=== PATIENT | male | born 1945 | race African-American/Black ===

== ENCOUNTER 2016-08-12 02:24 | Emergency (ER) | payer MEDICARE ==
[~2016-08-12] VITALS: Ht 182.9 cm; Wt 122.5 kg
[~2016-08-12 02:24] MED LIST: ASPI-39 PO; CHOL10003 PO; LOSA100T6 PO; METF500T4 PO; TERA5CAP3 PO; TRIA1TAB5 PO; VALS1TAB29 PO; VALS40TA2 PO
[2016-08-12] MEDS ORDERED: MORPHINE SULFATE 2 MG/ML DISP.SYRIN. IV/SQ PRN (03:00)
[2016-08-12 03:06] LABS: BASO # 0.1 x10^3/uL (0.0-0.2); BASO % 1 % (0-3); EOS % 0 % (0-3); HEMATOCRIT 43.2 % (39.0-53.0); HEMOGLOBIN 14.4 g/dL (13.0-17.5); LYMPH # 1.5 x10^3/uL (1.0-4.8); LYMPH % 19 % (24-48); MEAN CORPUSCULAR HEMOGLOBIN 30 pg (25-35); MEAN CORPUSCULAR HGB CONC 33 g/dL (31-37); MEAN CORPUSCULAR VOLUME 90 fL (79-100); MONO % 7 % (0-9); NEUT % 72 % (31-73); PLATELET COUNT 198 x10^3/uL (140-400); RED BLOOD COUNT 4.82 x10^6/uL (4.30-5.70); RED CELL DISTRIBUTION WIDTH 14.1 % (11.5-14.5); WHITE BLOOD COUNT 7.8 x10^3/uL (4.0-11.0)
[2016-08-12 03:15] LABS: CREATININE 1.2 mg/dL (0.7-1.3); POTASSIUM 3.8 mmol/L (3.5-5.1)
[2016-08-12 03:19] LABS: INR 1.1 (0.8-1.1); PROTHROMBIN TIME PATIENT 13.2 SEC (11.7-14.0)
[2016-08-12 03:20] LABS: ALBUMIN 3.6 g/dL (3.4-5.0); DIRECT BILIRUBIN 0.2 mg/dL (0.0-0.2); TOTAL BILIRUBIN 0.6 mg/dL (0.2-1.0); TOTAL PROTEIN 7.6 g/dL (6.4-8.2)
[2016-08-12] MEDS ORDERED: ASPIRIN CHEWABLE 81 MG TABLET. PO ONE (03:30)
[2016-08-12] MEDS ORDERED: NITROGLYCERIN OINT 1 GM PACKET. TP ONE (03:30)
[2016-08-12 03:55] LABS: CKMB MASS 0.6 ng/mL (0.0-3.6)
[2016-08-12 04:02] VITALS: BP 169/86
[2016-08-12] MEDS ORDERED: FAMO40TA57 PO (04:52)
--- NOTE | 2016-08-12 04:52 | PHYS DOC ---
Past Medical History Past Medical History: Diabetes-Type II, GERD, High Cholesterol, Hypertension Past Surgical History: Hip Replacement, Knee Replacement Additional Past Surgical Histo: back Alcohol Use: None Drug Use: None Social History Narrative: as with Adult General Chief Complaint Chief Complaint: NAUSEA/VOMITING/DIARRHA HPI HPI Patient is a 70 year old male who presents with epigastric pain. he states this started at 1800 p.m. The pain is a 5 on a pain scale. He started having some dry heaves after ingesting 7-Up with Pepto-Bismol. He states the epigastric discomfort has not resolved. He denies any actual chest pain, no shortness of air, no recent travel. No fever or chills. Review of Systems Review of Systems Constitutional: Denies fever or chills Eyes: Denies change in visual acuity, redness, or eye pain HENT: Denies nasal congestion or sore throat Respiratory: Denies cough or shortness of breath Cardiovascular: See history of present illness GI: See history of present illness. No diarrhea. No blood in his stools. : Denies dysuria or hematuria Musculoskeletal: Denies back pain or joint pain Integument: Denies rash or skin lesions Neurologic: Denies headache, focal weakness or sensory changes Current Medications Current Medications Current Medications Medications (Trade) Dose Ordered Sig/Karlene Start Time Stop Time Status Last Admin Dose Admin Aspirin (Children'S Aspirin) 324 mg 1X ONCE 08/12/16 03:30 08/12/16 03:31 DC 08/12/16 04:04 324 MG Famotidine (Pepcid) 20 mg 1X ONCE 08/12/16 05:00 08/12/16 05:01 DC 08/12/16 04:46 20 MG Morphine Sulfate 2 mg PRN Q15MIN PRN 08/12/16 03:00 08/12/16 05:19 DC 08/12/16 04:03 2 MG Nitroglycerin (Nitro-Bid Oint) 1 inch 1X ONCE 08/12/16 03:30 08/12/16 03:31 DC 08/12/16 04:02 1 INCH Allergies Allergies Allergies Coded Allergies Type Severity Reaction Last Updated Verified No Known Drug Allergies 06/15/13 No Physical Exam Physical Exam Constitutional: Well developed, well nourished, no acute distress, non-toxic appearance. HENT: Normocephalic, atraumatic, bilateral external ears normal, oropharynx moist, no oral exudates, nose normal. Eyes: PERRLA, EOMI, conjunctiva normal, no discharge. Neck: Normal range of motion, no tenderness, supple, no stridor. Cardiovascular:Heart rate regular rhythm, no murmur Lungs & Thorax: Bilateral breath sounds clear to auscultation Abdomen: Bowel sounds normal, soft, no tenderness, no masses, no pulsatile masses. No pain on palpation of his abdomen. Skin: Warm, dry, no erythema, no rash. Back: No tenderness, no CVA tenderness. Extremities: No tenderness, no cyanosis, no clubbing, ROM intact, no edema. Neurologic: Alert and oriented X 3, normal motor function, normal sensory function, no focal deficits noted. Psychologic: Affect normal, judgement normal, mood normal. Current Patient Data Vital Signs Vital Signs Date Time Temp Pulse Resp B/P (MAP) Pulse Ox O2 Delivery O2 Flow Rate FiO2 08/12/16 04:03 20 96 08/12/16 04:02 59 169/86 08/12/16 03:07 98.6 Room Air 98.6 Lab Values Laboratory Tests Test 08/12/16 02:55 White Blood Count 7.8 x10^3/uL (4.0-11.0) Red Blood Count 4.82 x10^6/uL (4.30-5.70) Hemoglobin 14.4 g/dL (13.0-17.5) Hematocrit 43.2 % (39.0-53.0) Mean Corpuscular Volume 90 fL (79-100) Mean Corpuscular Hemoglobin 30 pg (25-35) Mean Corpuscular Hemoglobin Concent 33 g/dL (31-37) Red Cell Distribution Width 14.1 % (11.5-14.5) Platelet Count 198 x10^3/uL (140-400) Neutrophils (%) (Auto) 72 % (31-73) Lymphocytes (%) (Auto) 19 % (24-48) L Monocytes (%) (Auto) 7 % (0-9) Eosinophils (%) (Auto) 0 % (0-3) Basophils (%) (Auto) 1 % (0-3) Neutrophils # (Auto) 5.6 x10^3uL (1.8-7.7) Lymphocytes # (Auto) 1.5 x10^3/uL (1.0-4.8) Monocytes # (Auto) 0.6 x10^3/uL (0.0-1.1) Eosinophils # (Auto) 0.0 x10^3/uL (0.0-0.7) Basophils # (Auto) 0.1 x10^3/uL (0.0-0.2) Prothrombin Time 13.2 SEC (11.7-14.0) Prothrombin Time INR 1.1 (0.8-1.1) Sodium Level 144 mmol/L (136-145) Potassium Level 3.8 mmol/L (3.5-5.1) Chloride Level 106 mmol/L (98-107) Carbon Dioxide Level 27 mmol/L (21-32) Anion Gap 11 (6-14) Blood Urea Nitrogen 21 mg/dL (8-26) Creatinine 1.2 mg/dL (0.7-1.3) Estimated GFR (Cockcroft-Gault) 72.0 Glucose Level 185 mg/dL (70-99) H Calcium Level 9.0 mg/dL (8.5-10.1) Total Bilirubin 0.6 mg/dL (0.2-1.0) Direct Bilirubin 0.2 mg/dL (0.0-0.2) Aspartate Amino Transferase (AST) 13 U/L (15-37) L Alanine Aminotransferase (ALT) 17 U/L (16-63) Alkaline Phosphatase 92 U/L (46-116) Creatine Kinase 83 U/L (39-308) Creatine Kinase MB (Mass) 0.6 ng/mL (0.0-3.6) Creatine Kinase MB Relative Index 0.7 % (0-4) Troponin I Quantitative < 0.017 ng/mL (0.000-0.055) BV-Xnk-H-Type Natriuretic Peptide 238 pg/mL (0-124) H Total Protein 7.6 g/dL (6.4-8.2) Albumin 3.6 g/dL (3.4-5.0) Laboratory Tests 08/12/16 02:55 Laboratory Tests 08/12/16 02:55 EKG EKG EKG interpreted by myself NSR, rate 73, prolonged QT; 1deg AV block Radiology/Procedures Radiology/Procedures CXR: interpreted by myself. fluid in fissure on right vs atelectasis. Course & Med Decision Making Course & Med Decision Making Pertinent Labs and Imaging studies reviewed. (See chart for details) Evaluated patient. Concerned this discomfort may be angina. NTP to chest wall; ASA dosed. 0430 AM: Spoke with patient; recommended admission to r/o cardiac etiology. HE DECLINED ADMISSION. He just wants "something for my reflux." Dosed here with pepcid. Informed patient that he will need to sign out AMA as he is high risk and I cannot r/o cardiac etiology here in ED. BP 160/80l sat 93% P 68 Dragon Disclaimer Dragon Disclaimer This electronic medical record was generated, in whole or in part, using a voice recognition dictation system. Departure Departure Impression: Primary Impression: Epigastric pain Additional Impression: Hypertension Disposition: 07 AGAINST MEDICAL ADVICE Referrals: LUCINDA MARCH MD (PCP) Scripts Famotidine (PEPCID) 40 Mg Tablet 40 MG PO HS for 30 Days, #30 TAB Prov: FANY BHAGAT MD 08/12/16 Problem Qualifiers FANY BHAGAT MD August 12, 2016 04:52
[2016-08-12] MEDS ORDERED: FAMOTIDINE 20 MG TABLET. PO ONE (05:00)
--- NOTE | 2016-08-12 07:47 | RAD ---
Indication reflux. Vomiting. A single view of the chest was obtained and is compared to an examination just over 8 years earlier. The level of inspiratory effort is not optimal. The heart and pulmonary vessels appear normal. The lungs are clear of acute infiltrates. Significant pleural fluid is not seen. There is no pneumothorax. A significant change when compared to the previous examination is not seen. IMPRESSION: No acute or focal process seen in the chest
--- NOTE | 2016-08-12 07:51 | EKG ---
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
== END 2016-08-12 05:19 | disposition left against medical advice (07) ==
LOC: ER 02:24
DX: R10.13 Epigastric pain (principal); I10 Essential (primary) hypertension; E78.00 Pure hypercholesterolemia, unspecified; E11.9 Type 2 diabetes mellitus without complications; K21.9 Gastro-esophageal reflux disease without esophagitis
CPT/HCPCS: 36415; 71010; 80048; 80076; 82553; 83880; 84484; 85027; 85610; 93005; 96374; 99285; J2270

== ENCOUNTER 2016-09-06 09:11 | Emergency (ER) | payer MEDICARE ==
[~2016-09-06] VITALS: Ht 182.9 cm; Wt 124.7 kg
[~2016-09-06 09:11] MED LIST changes: +FAMO40TA57 PO
--- NOTE | 2016-09-06 09:44 | PHYS DOC ---
Past Medical History Past Medical History: Diabetes-Type II, GERD, High Cholesterol, Hypertension Past Surgical History: Hip Replacement Additional Past Surgical Histo: back Alcohol Use: None Drug Use: None Adult General Chief Complaint Chief Complaint: GI PROBLEM HPI HPI Tristian is a pleasant 70-year-old male with history of diabetes, hypertension, hypercholesterolemia and reflux who presents with epigastric pain that began last night after eating chicken and hot sauce about 11:30 PM. He noted that the pain increased significantly with laying down after eating. He said she had 3 episodes like this in the past before but never had residual pain when he woke up in the morning. After taking 2 by mouth tablets he felt markedly better but his residual burning sensation in the middle of his abdomen. There is no radiation to the back no nausea, vomiting, diarrhea, chest pain, shortness of breath or other symptoms. He denies being lightheaded and dizzy when he stands denied any melanotic stool or blood in his stool or bowel limits. Patient denies any change in medication is not been taking NSAIDs [id number] for any other reason. Patient denies any travel outside the country or recent antibiotic use. Differential diagnosis for chest pain: Pericarditis, myocarditis, endocarditis, pneumothorax, pneumonia, aortic dissection, esophageal spasm, esophagitis, peptic ulcer disease, acute coronary syndrome, mediastinitis, Boerhaave syndrome , musculoskeletal chest wall pain, costochondritis, intercostal strain, rib fracture, pulmonary contusion, pneumonitis, pleural effusion, pericardial effusion, pericardial tamponode, and pleurisy. We'll be considered as part of his disease workup process. He will have a CBC, CMP, cardiac enzymes EKG chest x -ray completed. He'll be given some supportive medications. Review of Systems Review of Systems Constitutional: Denies fever or chills [] Eyes: Denies change in visual acuity, redness, or eye pain [] HENT: Denies nasal congestion or sore throat [] Respiratory: Denies cough or shortness of breath [] Cardiovascular: No additional information not addressed in HPI [] GI: His only complaint is abdominal pain described as a burning sensation like her prior reflux without nausea, vomiting, diarrhea or bloody stools. : Denies dysuria or hematuria [] Musculoskeletal: Denies back pain or joint pain [] Integument: Denies rash or skin lesions [] Neurologic: Denies headache, focal weakness or sensory changes [] Endocrine: Denies polyuria or polydipsia [] Current Medications Current Medications Current Medications Medications (Trade) Dose Ordered Sig/Karlene Start Time Stop Time Status Last Admin Dose Admin Multi-Ingredient Mouthwash/Gargle (Gi Cocktail Single Dose) 15 ml 1X ONCE 09/06/16 10:00 09/06/16 10:01 DC 09/06/16 10:26 15 ML Sodium Chloride (Normal Saline Flush) 10 ml QSHIFT PRN 09/06/16 09:45 Allergies Allergies Allergies Coded Allergies Type Severity Reaction Last Updated Verified No Known Drug Allergies 06/15/13 No Physical Exam Physical Exam Vital signs were evaluated patient is hypertensive but chronic and known to patient. Otherwise normal vital signs. Constitutional: Well developed, well nourished, no acute distress, non-toxic appearance. [] HENT: Normocephalic, atraumatic, bilateral external ears normal, oropharynx moist, no oral exudates, nose normal. [] Eyes: PERRLA, EOMI, conjunctiva normal, no discharge. [] Neck: Normal range of motion, no tenderness, supple, no stridor. [] Cardiovascular:Heart rate regular rhythm, no murmur [] Lungs & Thorax: Bilateral breath sounds clear to auscultation [] Abdomen: Bowel sounds normal, soft, I'll tenderness to palpate the epigastrium without any radiation to the back is reproducible on exam. There is no Vazquez's or McBurney's point tenderness palpation. Patient denies any guarding rebound organomegaly. Skin: Warm, dry, no erythema, no rash. [] Back: No tenderness, no CVA tenderness. [] Extremities: No tenderness, no cyanosis, no clubbing, ROM intact, no edema. [] Neurologic: Alert and oriented X 3, normal motor function, normal sensory function, no focal deficits noted. [] Psychologic: Affect normal, judgement normal, mood normal. [] Current Patient Data Vital Signs Vital Signs Date Time Temp Pulse Resp B/P (MAP) Pulse Ox O2 Delivery O2 Flow Rate FiO2 09/06/16 11:00 58 18 171/84 (113) 98 09/06/16 09:21 98.2 Room Air 98.2 Lab Values Laboratory Tests Test 09/06/16 10:00 White Blood Count 7.6 x10^3/uL (4.0-11.0) Red Blood Count 4.72 x10^6/uL (4.30-5.70) Hemoglobin 14.1 g/dL (13.0-17.5) Hematocrit 41.3 % (39.0-53.0) Mean Corpuscular Volume 88 fL (79-100) Mean Corpuscular Hemoglobin 30 pg (25-35) Mean Corpuscular Hemoglobin Concent 34 g/dL (31-37) Red Cell Distribution Width 13.7 % (11.5-14.5) Platelet Count 171 x10^3/uL (140-400) Neutrophils (%) (Auto) 75 % (31-73) H Lymphocytes (%) (Auto) 18 % (24-48) L Monocytes (%) (Auto) 6 % (0-9) Eosinophils (%) (Auto) 1 % (0-3) Basophils (%) (Auto) 1 % (0-3) Neutrophils # (Auto) 5.7 x10^3uL (1.8-7.7) Lymphocytes # (Auto) 1.3 x10^3/uL (1.0-4.8) Monocytes # (Auto) 0.5 x10^3/uL (0.0-1.1) Eosinophils # (Auto) 0.0 x10^3/uL (0.0-0.7) Basophils # (Auto) 0.1 x10^3/uL (0.0-0.2) Sodium Level 141 mmol/L (136-145) Potassium Level 3.4 mmol/L (3.5-5.1) L Chloride Level 105 mmol/L (98-107) Carbon Dioxide Level 28 mmol/L (21-32) Anion Gap 8 (6-14) Blood Urea Nitrogen 17 mg/dL (8-26) Creatinine 1.4 mg/dL (0.7-1.3) H Estimated GFR (Cockcroft-Gault) 60.3 Glucose Level 152 mg/dL (70-99) H Calcium Level 8.8 mg/dL (8.5-10.1) Magnesium Level 1.8 mg/dL (1.8-2.4) Total Bilirubin 0.9 mg/dL (0.2-1.0) Direct Bilirubin 0.2 mg/dL (0.0-0.2) Aspartate Amino Transferase (AST) 14 U/L (15-37) L Alanine Aminotransferase (ALT) 19 U/L (16-63) Alkaline Phosphatase 79 U/L (46-116) Creatine Kinase 82 U/L (39-308) Creatine Kinase MB (Mass) 0.5 ng/mL (0.0-3.6) Creatine Kinase MB Relative Index 0.6 % (0-4) Troponin I Quantitative < 0.017 ng/mL (0.000-0.055) XV-Qha-O-Type Natriuretic Peptide 238 pg/mL (0-124) H Total Protein 7.2 g/dL (6.4-8.2) Albumin 3.4 g/dL (3.4-5.0) Lipase 66 U/L (73-393) L Laboratory Tests 09/06/16 10:00 Laboratory Tests 09/06/16 10:00 EKG EKG EKG timed 10:01 AM 09/06/2016 demonstrates a an irregular rhythm with a rate of 72 likely A. fib QRS interval is normal at 80 QTc is mildly elevated at 462. No ST segment T-wave changes consistent with acute coronary ischemia there is some mild T-wave flattening in inferior leads. Read by Dr. Gomez. Radiology/Procedures Radiology/Procedures [] [facility] [address] [place], [place] [id number] IMAGING REPORT Signed PATIENT: LILIAN SYED ACCOUNT: [id number] : 1945 LOCATION: ER AGE: 70 SEX: M EXAM STATUS: REG ER ORD. PHYSICIAN: FRANC GOMEZ MD REASON: epigastric pain PROCEDURE: CHEST PA & LATERAL Indication epigastric pain. PA and lateral views of the chest were obtained. Comparison is made to an examination 08/12/2016. There is unchanged elevation of the right hemidiaphragm. There is some minimal atelectasis in the right lower lung field similar to the previous exam. An acute parenchymal infiltrate is not seen. Significant pleural fluid is not present. There is no pneumothorax. There are degenerative changes in the thoracic spine IMPRESSION: No acute or focal process seen in the chest DICTATED and SIGNED BY: JACOB BLACK MD DATE: 09/06/16 1040 CC: FRANC GOMEZ MD; LUCINDA MARCH MD ~ Course & Med Decision Making Course & Med Decision Making Pertinent Labs and Imaging studies reviewed. (See chart for details) I reviewed nursing notes, vital signs, history and physical as well as laboratory work EKG and chest x-ray.Differential diagnosis for chest pain: Pericarditis, myocarditis, endocarditis, pneumothorax, pneumonia, aortic dissection, esophageal spasm, esophagitis, peptic ulcer disease, acute coronary syndrome, mediastinitis, Boerhaave syndrome, musculoskeletal chest wall pain, costochondritis, intercostal strain, rib fracture, pulmonary contusion, pneumonitis, pleural effusion, pericardial effusion, pericardial tamponode, and pleurisy. Was considered upon arrival given the fact that this is reducible pain that he's had before with spicy foods is improved with an H2 jerod and a GI cocktail here in the emergency department I believe this is likely GI in nature. Although this is not completely rule out the presence of heart disease. Given he is a diabetic and hypertensive and hyperlipidemic patient I will encourage him to follow-up with his primary care doctor for referral to cardiology for an outpatient workup.History: Highly suspicious 2 points moderately suspicious 1. slightly suspicious 0 point EKG: ST segment depression 2. nonspecific repolarization disturbance 1. normal 0 point Age: Greater than 65 2 points, 65-45 1., less than 45 years old 0 points Risk factors:> 3 risk factors 2 points, 1-2 risk factors one point, no risk factors 0 point Troponin: > 2 times normal 2 points, 1-2 times normal 1., normal limits 0 point Total score: Score % pts MACE/n MACE Policy 0-3 32% 1.9% 0.05% Discharge 4-6 51% 413/3136 13% 1.3% Observation Risk management 7-10 17% 518/1045 50% 2.8% Observation Treatment, CAGB Is a 2 at this time based on age and risk factors. He is low risk and could be discharged with outpatient management. Impression: Reflux, abdominal pain. Disposition: PCP follow-up with H2 jerod and Zofran. [] Dragon Disclaimer Dragon Disclaimer This electronic medical record was generated, in whole or in part, using a voice recognition dictation system. Departure Departure Impression: Primary Impression: Abdominal pain Additional Impression: Esophageal reflux Disposition: 01 HOME, SELF-CARE Condition: IMPROVED Referrals: LUCINDA MARCH MD (PCP) Patient Instructions: Gastroesophageal Reflux Disease, Adult Additional Instructions: Please return for any new or increasing symptoms, or feel any question concerns. I would encourage you do not eat fatty foods or use of exacerbate her symptoms. Please return for any new questions or if you might have a question about your treatment please follow-up with your PCP for GI referral. Scripts Calcium Carbonate (TUMS) 200 Mg Tab.chew 200 MG PO PRN for 30 Days, TAB.CHEW Prov: FRANC GOMEZ MD 09/06/16 Pantoprazole Sodium (PROTONIX) 40 Mg Tablet.dr 1 TAB PO DAILY, #30 TAB 5 Refills Prov: FRANC GOMEZ MD 09/06/16 Problem Qualifiers FRANC GOMEZ MD Sep 06, 2016 09:44
[2016-09-06] MEDS ORDERED: 0.9 % SODIUM CHLORIDE 10 ML DISP.SYRIN. IV PRN (09:45)
[2016-09-06] MEDS ORDERED: IV NORMAL SALINE 1000ML BAG 1,000 ML IV SCH (10:00)
[2016-09-06] MEDS ORDERED: LIDO:MAALOX:DONNATAL 1:1:1 15 ML SINGLE DOSE SWSW ONE (10:00)
--- NOTE | 2016-09-06 10:05 | EKG ---
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 RI6.01 Unconfirmed report Electronically Signed On 09-06-2016 11:12:32 CDT by Meliton Neal
[2016-09-06 10:19] LABS: BASO # 0.1 x10^3/uL (0.0-0.2); BASO % 1 % (0-3); EOS % 1 % (0-3); HEMATOCRIT 41.3 % (39.0-53.0); HEMOGLOBIN 14.1 g/dL (13.0-17.5); LYMPH # 1.3 x10^3/uL (1.0-4.8); LYMPH % 18 % (24-48); MEAN CORPUSCULAR HEMOGLOBIN 30 pg (25-35); MEAN CORPUSCULAR HGB CONC 34 g/dL (31-37); MEAN CORPUSCULAR VOLUME 88 fL (79-100); MONO % 6 % (0-9); NEUT % 75 % (31-73); PLATELET COUNT 171 x10^3/uL (140-400); RED BLOOD COUNT 4.72 x10^6/uL (4.30-5.70); RED CELL DISTRIBUTION WIDTH 13.7 % (11.5-14.5); WHITE BLOOD COUNT 7.6 x10^3/uL (4.0-11.0)
[2016-09-06 10:21] LABS: CALCIUM 8.8 mg/dL (8.5-10.1); CREATININE 1.4 mg/dL (0.7-1.3); GFR 60.3; POTASSIUM 3.4 mmol/L (3.5-5.1)
[2016-09-06 10:28] LABS: ALBUMIN 3.4 g/dL (3.4-5.0); DIRECT BILIRUBIN 0.2 mg/dL (0.0-0.2); MAGNESIUM 1.8 mg/dL (1.8-2.4); TOTAL BILIRUBIN 0.9 mg/dL (0.2-1.0); TOTAL PROTEIN 7.2 g/dL (6.4-8.2)
[2016-09-06 10:35] LABS: CKMB MASS 0.5 ng/mL (0.0-3.6)
--- NOTE | 2016-09-06 10:45 | RAD ---
Indication epigastric pain. PA and lateral views of the chest were obtained. Comparison is made to an examination 08/12/2016. There is unchanged elevation of the right hemidiaphragm. There is some minimal atelectasis in the right lower lung field similar to the previous exam. An acute parenchymal infiltrate is not seen. Significant pleural fluid is not present. There is no pneumothorax. There are degenerative changes in the thoracic spine IMPRESSION: No acute or focal process seen in the chest
[2016-09-06 11:00] VITALS: BP 171/84
[2016-09-06] MEDS ORDERED: PANT40TA3 PO (11:16)
[2016-09-06] MEDS ORDERED: CALC200T3 PO (11:16)
== END 2016-09-06 11:23 | disposition home or self-care (01) ==
LOC: ER 09:11
DX: K21.9 Gastro-esophageal reflux disease without esophagitis (principal); E78.00 Pure hypercholesterolemia, unspecified; E11.9 Type 2 diabetes mellitus without complications; I10 Essential (primary) hypertension; Z96.649 Presence of unspecified artificial hip joint
CPT/HCPCS: 36415; 71020; 80048; 80076; 82553; 83690; 83735; 83880; 84484; 85027; 93005; 96360; 99285; J7030

== ENCOUNTER → 2021-04-24 | Outpatient (CLI) | payer MEDICARE ==
[~2021-04-24] MED LIST changes: +CALC200T3 PO; +LOSA100T14 PO; -LOSA100T6 PO; +METF500T16 PO; -METF500T4 PO; +PANT40TA77 PO
--- NOTE | 2021-04-24 10:59 | KCIC ---
EXAMINATION: CT HEAD/BRAIN WO CLINICAL HISTORY: Mild cognitive impairment. Recent onset short term memory problems. History of hype rtension, diabetes. TECHNIQUE: Serial axial images without IV contrast were obtained from the vertex to the foramen magnu m. Artificial intelligence software analysis also performed utilizing [employer]. CT Dose Reduction Employed: One or more of the following individualized dose reduction techniques wer e utilized for this examination: 1. Automated exposure control 2. Adjustment of the mA and/or kV ac cording to patient size 3. Use of iterative reconstruction technique. COMPARISON: None FINDINGS: Acute Change: No evidence of an acute infarct or other acute parenchymal process. Hemorrhage: No evidence of acute intracranial hemorrhage. Mass Lesion/Mass Effect: No evidence of intracranial mass or extraaxial fluid collection. No signific ant mass effect. Chronic Change: Scattered patchy foci of hypoattenuation in the supratentorial white matter, nonspeci fic but likely represents minimal microvascular ischemia. Parenchyma: Mild generalized volume loss. Ventricles: Ventricular enlargement concordant with degree of parenchymal volume loss. Paranasal Sinuses and Skull Base: Visualized paranasal sinuses clear. Visualized skull base and soft tissues unremarkable. IMPRESSION: No evidence of acute intracranial abnormality. Electronically signed by: Alonso Tariq DO (04/24/2021 10:56 AM) ADAN
== END ==
LOC: KCIC CT 10:09
PROVIDERS: ATTEND Family Medicine
DX: G31.84 Mild cognitive impairment of uncertain or unknown etiology (principal); I51.7 Cardiomegaly
CPT/HCPCS: 70450